=== PATIENT | female | born 1960 | race Caucasian/White ===

== ENCOUNTER 2021-11-07 08:05 | Day surgery (SDC) | payer OTHER ==
[2021-11-05 12:41] LABS: COVID AG,FIA SOURCE NASOPHARYNGEAL
[~2021-11-07] VITALS: Ht 157.5 cm; Wt 49.1 kg
[~2021-11-07 08:05] MED LIST: SODIUM CHLORIDE 0.9% 1,000 ML IV ONE; SODIUM CHLORIDE 0.9% 1,000 ML ONE
[2021-11-07] MEDS ORDERED: PROPOFOL 1% 20 ML VIAL IVP ONE (08:06)
[2021-11-07] MEDS ORDERED: LISI-894 PO (09:08)
[2021-11-07] MEDS ORDERED: CHOL25TA4 PO (09:08)
[2021-11-07] MEDS ORDERED: LUBI24CA2 PO (09:08)
== END 2021-11-07 12:35 | disposition home or self-care (01) ==
LOC: SURGERY 08:05
PROVIDERS: ATTEND Internal Medicine Gastroenterology
DX: K62.1 Rectal polyp (principal); K64.1 Second degree hemorrhoids; I10 Essential (primary) hypertension; K59.09 Other constipation; Z79.899 Other long term (current) drug therapy; Z98.890 Other specified postprocedural states
CPT/HCPCS: 45380; 87426; 88305; C9803; J2704; J7030